=== PATIENT | male | born 1990 | race Caucasian/White ===

== ENCOUNTER → 2023-05-14 11:21 | Outpatient (BNVA) | payer BC, SELFPAY | PROVIDERS: Visit Provider Nurse Practitioner Family | DX: I10 Essential (primary) hypertension (principal); R53.83 Other fatigue; E07.9 Disorder of thyroid, unspecified | CPT/HCPCS: 80053; 80061; 82306; 82607; 83735; 84439; 84443; 85025; 86376 ==

== ENCOUNTER 2023-07-10 20:00 | Outpatient (CLI) | payer BC, SELFPAY | END 2023-07-10 20:01 | disposition home or self-care (01) | LOC: SLEEP 07-11 04:41 | PROVIDERS: Visit Provider Nurse Practitioner Family | DX: G47.10 Hypersomnia, unspecified (principal); G47.33 Obstructive sleep apnea (adult) (pediatric) | CPT/HCPCS: 95810 ==